=== PATIENT | male | born 1960 | race Caucasian/White ===

== ENCOUNTER 2019-10-22 11:42 | Inpatient (IN) | payer SELFPAY ==
[~2019-10-22] VITALS: Ht 177.8 cm; Wt 87.9 kg
[2019-10-22] MEDS ORDERED: IV NORMAL SALINE 1,000ML 1,000 ML IV ONE (12:00)
[2019-10-22] MEDS ORDERED: CONTRAST GIVEN MC PRN (12:15)
[2019-10-22] MEDS ORDERED: IOHEXOL 300 MG/ML 75 ML VIAL. IV ONE (12:15)
--- NOTE | 2019-10-22 12:15 | PHYS DOC ---
Past History Past Medical History: No Pertinent History Past Surgical History: No Surgical History Smoking: Cigarettes Alcohol Use: None Drug Use: None General Adult EDM: Chief Complaint: NAUSEA/VOMITING/DIARRHEA HPI: HPI: 59-year-old male presents via EMS with report of lower abdominal pain with associated nausea, vomiting, and diarrhea. Reports it started 2 days ago. Reports he has concerned it might have been associated with some sausage that he cooked for biscuits and gravy Wed night. Denies fever or chills. Denies trauma. Denies travel outside [place]. Denies contact with anyone diagnosed with COVID-19. Reports someone else that ate the biscuits and gravy also had some nausea/vomiting/diarrhea but has since resolved. Review of Systems: Review of Systems: Constitutional: Denies fever or chills Eyes: Denies redness or eye pain HENT: Denies nasal congestion or sore throat Respiratory: Denies cough or shortness of breath Cardiovascular: Denies chest pain or palpitations GI: Reports abdominal pain, nausea, vomiting, and diarrhea : Denies dysuria or hematuria Musculoskeletal: Denies back pain or joint pain Integument: Denies rash or skin lesions Neurologic: Denies headache, focal weakness or sensory changes Complete systems were reviewed and found to be within normal limits, except as documented in this note. Current Medications: Current Meds: Current Medications Medications (Trade) Dose Ordered Sig/Janet Start Time Stop Time Status Last Admin Dose Admin Famotidine (Pepcid Vial) 20 mg 1X ONCE 10/22/19 12:10/22/19 12:10/22/19 12:04 20 MG Info (Do NOT chart on this entry -- for MONITORING) 1 each PRN DAILY PRN 10/22/19 12:15 10/24/19 12:14 Iohexol (Omnipaque 300 Mg/ml) 75 ml 1X ONCE 10/22/19 12:15 10/22/19 12:16 Ketorolac Tromethamine (Toradol 15mg Vial) 10 mg 1X ONCE 10/22/19 12:30 10/22/19 12:31 10/22/19 12:04 10 MG Ondansetron HCl (Zofran) 4 mg 1X ONCE 10/22/19 12:30 10/22/19 12:31 10/22/19 12:04 4 MG Sodium Chloride 1,000 ml @ 1,000 mls/hr 1X ONCE 10/22/19 12:00 10/22/19 12:59 10/22/19 12:00 1,000 MLS/HR Allergies: Allergies: Allergies Coded Allergies Type Severity Reaction Last Updated Verified No Known Drug Allergies 10/22/19 No Physical Exam: PE: Constitutional: Well developed, well nourished, no acute distress, non-toxic appearance HENT: Normocephalic, atraumatic, oropharynx dry Eyes: Conjunctiva normal, no discharge Neck: Normal range of motion, no tenderness, supple Cardiovascular: Heart rate normal, regular rhythm Lungs & Thorax: Bilateral breath sounds clear to auscultation, no wheezing Abdomen: Soft, diffuse tenderness, no guarding/rebound tenderness, mild distention Skin: Warm, dry, no erythema, no rash Back: No tenderness, no CVA tenderness Extremities: No tenderness, ROM intact, no edema Neurologic: Alert and oriented X 3, no focal deficits noted Psychologic: Affect normal, judgment normal Current Patient Data: Vital Signs: Vital Signs Date Time Temp Pulse Resp B/P (MAP) Pulse Ox O2 Delivery O2 Flow Rate FiO2 10/22/19 11:52 97.6 80 148/99 (115) 98 10/22/19 11:51 18 Room Air EKG: EKG: @1357 NSR @73bpm, No ST elevation, QRS 382ms, QT/QTc 382/424ms Radiology/Procedures: Radiology/Procedures: PROCEDURE: CT ABD PELV W/ IV CONTRST ONLY CT SCAN OF THE ABDOMEN AND PELVIS WITH IV CONTRAST. History: Comparison:None. Procedure: Contiguous axial images of the abdomen and pelvis were performed after the administration of 75 cc of Isovue 370 IV contrast. Oral contrast: No. Findings: The urinary bladder is collapsed. There is apparent mild wall thickening. The appendix is normal. The colon has a normal caliber. The proximal small bowel is dilated. The mid and distal small bowel is collapsed. There is no exact transition zone seen. Liver: Unremarkable Spleen: Unremarkable Pancreas: Unremarkable Adrenal Glands: Unremarkable Kidneys: Bilateral simple cysts There is no mass or lymphadenopathy. There is no free air. There is no free fluid. There is a small hiatal hernia. Impression: 1. Partial mid small bowel obstruction. 2. Wall thickening of the urinary bladder likely secondary to hypertrophy. End impression PQRS Compliance Statement: One or more of the following individualized dose reduction techniques were utilized for this examination: 1. Automated exposure control 2. Adjustment of the mA and/or kV according to patient size 3. Use of iterative reconstruction technique Electronically signed by: Evelio Gonzalez III, MD (10/22/2019 1:37 PM) [id number] Course & Med Decision Making: Course & Med Decision Making Pertinent Labs and Imaging studies reviewed. (See chart for details) Patient presents with lower abdominal pain with associated nausea, vomiting, and diarrhea. Symptomatic treatment provided. IV fluid hydration given. Labs obtained and posted to chart. Hemoglobin elevated consistent for dehydration. WBC within normal limits however elevated bands noted. Patient does not meet SI RS criteria. Lactic acid within normal limits. UA with signs of microscopic hematuria. Patient reports history of chronic hematuria. CT abdomen/pelvis with finding of partial small bowel obstruction and bladder hypertrophy. Stool studies ordered. Patient currently has been unable to produce stool. Patient requiring admission for further evaluation and treatment. Discussed with Dr. Correa (hospitalist) who is in agreement with admission. Discussed findings and plan with patient, who acknowledges understanding and agreement. Anette Disclaimer: Anette Disclaimer: This electronic medical record was generated, in whole or in part, using a voice recognition dictation system. Departure Departure: Impression: Primary Impression: Partial small bowel obstruction Additional Impressions: Dehydration Bandemia Hematuria Qualified Codes: R31.9 - Hematuria, unspecified Disposition: ADMITTED INPATIENT Admitting Physician: Gay Correa Condition: STABLE Referrals: PCPREGINALD (PCP) MEY JOYNER DO Oct 22, 2019 12:15
[2019-10-22 12:25] LABS: BASO % 0 % (0-3); EOS % 0 % (0-3); HEMATOCRIT 51.6 % (39.0-53.0); HEMOGLOBIN 17.7 g/dL (13.0-17.5); LYMPH # 0.5 x10^3/uL (1.0-4.8); LYMPH % 6 % (24-48); MEAN CORPUSCULAR HEMOGLOBIN 30 pg (25-35); MEAN CORPUSCULAR HGB CONC 34 g/dL (31-37); MEAN CORPUSCULAR VOLUME 86 fL (79-100); MONO # 1.1 x10^3/uL (0.0-1.1); MONO % 14 % (0-9); NEUT # 6.3 x10^3uL (1.8-7.7); NEUT % 80 % (31-73); PLATELET COUNT 272 x10^3/uL (140-400); RED BLOOD COUNT 5.97 x10^6/uL (4.30-5.70); RED CELL DISTRIBUTION WIDTH 15.4 % (11.5-14.5); WHITE BLOOD COUNT 7.9 x10^3/uL (4.0-11.0)
[2019-10-22] MEDS ORDERED: FAMOTIDINE 20 MG/2 ML VIAL IVP ONE (12:30)
[2019-10-22] MEDS ORDERED: ONDANSETRON PF 4 MG/2 ML VIAL. IVP ONE (12:30)
[2019-10-22] MEDS ORDERED: KETOROLAC 15 MG/ML VIAL. IVP ONE (12:30)
[2019-10-22 12:41] LABS: CALCIUM 9.1 mg/dL (8.5-10.1); CREATININE 1.2 mg/dL (0.7-1.3); GFR 61.6; POTASSIUM 3.9 mmol/L (3.5-5.1)
[2019-10-22 12:43] LABS: BACTERIA,URINE 0 /HPF (0-FEW); BILIRUBIN,URINE NEG (NEG); CLARITY,URINE HAZY; COLOR,URINE YELLOW; GLUCOSE,URINE NEG (NEG); NITRITE,URINE NEG (NEG); RBC,URINE 20-40 /HPF (0-2); SQUAMOUS EPITHELIAL CELL,UR MOD /LPF; UROBILINOGEN,URINE 0.2 mg/dL (0.2 mg/dL)
[2019-10-22 12:57] LABS: ALBUMIN 3.8 g/dL (3.4-5.0); MAGNESIUM 2.5 mg/dL (1.8-2.4); TOTAL BILIRUBIN 0.5 mg/dL (0.2-1.0); TOTAL PROTEIN 7.7 g/dL (6.4-8.2)
[2019-10-22 13:14] LABS: % BANDS 16 % (0-9); % LYMPHS 10 % (24-48); % MONOS 7 % (0-10); % SEGS 67 % (35-66)
[2019-10-22 13:15] LABS: PLT ESTIMATE ADEQUATE (ADEQUATE)
--- NOTE | 2019-10-22 13:40 | RAD ---
CT SCAN OF THE ABDOMEN AND PELVIS WITH IV CONTRAST. History: Comparison:None. Procedure: Contiguous axial images of the abdomen and pelvis were performed after the administration of 75 cc of Isovue 370 IV contrast. Oral contrast: No. Findings: The urinary bladder is collapsed. There is apparent mild wall thickening. The appendix is normal. The colon has a normal caliber. The proximal small bowel is dilated. The mid and distal small bowel is collapsed. There is no exact transition zone seen. Liver: Unremarkable Spleen: Unremarkable Pancreas: Unremarkable Adrenal Glands: Unremarkable Kidneys: Bilateral simple cysts There is no mass or lymphadenopathy. There is no free air. There is no free fluid. There is a small hiatal hernia. Impression: 1. Partial mid small bowel obstruction. 2. Wall thickening of the urinary bladder likely secondary to hypertrophy. End impression PQRS Compliance Statement: One or more of the following individualized dose reduction techniques were utilized for this examination: 1. Automated exposure control 2. Adjustment of the mA and/or kV according to patient size 3. Use of iterative reconstruction technique Electronically signed by: Evelio Gonzalez III, MD (10/22/2019 1:37 PM) [id number]
[2019-10-22] MEDS: IV NORMAL SALINE 1,000ML 1,000 ML IV SCH ×2 (14:07→22:19)
[2019-10-22 16:11] VITALS: BP 145/87
[2019-10-22] MEDS: ONDANSETRON PF 4 MG/2 ML VIAL. IVP PRN (17:00)
[2019-10-22 17:13] LABS: FECAL OB PT POSITIVE (NEG)
--- NOTE | 2019-10-22 18:18 | HP ---
ADMIT DATE: 10/22/2019 HISTORY OF PRESENT ILLNESS: The patient is a 59-year-old male patient who came to the Emergency Room complaining of nausea, vomiting and diarrhea started last , 3 days ago. He also complained of abdominal pain. He said that is mostly dry heaving; however, has multiple episodes of loose bowel movement, associated abdominal pain after he took biscuits and gravy Thursday night. He does have some chills, but denied any fever. Denied any travel outside [place]. Denied any contact with anyone diagnosed with COVID-19. He stated that someone else ate the biscuits and gravy also had some nausea, vomiting and diarrhea that has since resolved. He was extensively investigated in the Emergency Room and his lab work showed that he clearly dehydrated. His BUN is 36, his creatinine 1.2. His H and H also was 17.7 and 51.6, likely due to dehydration, although he is a smoker, due to secondary erythrocytosis. His CT scan of the abdomen and pelvis showed that what looks like partial mid small-bowel obstruction, wall thickening there in the bladder, likely secondary to hypertrophy. The patient was admitted and was kept n.p.o., was given a liter of fluid in the Emergency Room and was also continued on IV fluid and IV pain medication. PAST MEDICAL HISTORY: Significant for gastroesophageal reflux disease as well as dysphagia to solids. PAST SURGICAL HISTORY: Unremarkable. ALLERGIES: He has no known drug allergies. MEDICATIONS: He is currently on Prilosec 20 mg once a day. FAMILY HISTORY: He has 3 brothers, 1 older and 2 youngers. He does not keep in touch with them. His father at the age of 65. Mother is still alive at the age of 80. SOCIAL HISTORY: twice, has no children. He smokes a pack a day, does not drink alcohol or use recreational drugs. 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 REVIEW OF SYSTEMS: The patient denies any blurring of vision, cataract, glaucoma or macular degeneration. Denied any earache, tinnitus or sensorineural deafness. Denied any nosebleeds, stuffy nose or postnasal drip. Denied any sore throat, sore tongue, toothache, hoarseness of voice. He did complain of difficulty swallowing to solids. He did complain also of nausea with vomiting, but mostly dry heaves. He has diarrhea, it has been consistent since last , but denied any hematemesis, melena or hematochezia. Denied any dysuria, frequency or hematuria. Denied any chest pain, shortness of breath, orthopnea, paroxysmal nocturnal dyspnea. Denied any cough, phlegm or hemoptysis. Did complain of dizziness and lightheadedness. PHYSICAL EXAMINATION: GENERAL: On arrival to the Emergency Room, he looked well and was clearly in no apparent respiratory distress. No pallor, jaundice, cyanosis or thyromegaly. No jugular venous distention. No limb edema. VITAL SIGNS: His heart rate was 80, blood pressure was 148/99, temperature was 97.6, respiratory rate was 18 and oxygen saturation was 98%. HEAD, EYES, EARS, NOSE AND THROAT: Showed normocephalic, atraumatic. NECK: Supple. HEART: Showed normal first and second heart sounds. No gallop or murmur. CHEST: Clear to auscultation. No crepitation or rhonchi. ABDOMEN: Distended, soft, nontender. No guarding or rigidity. No organomegaly. All hernial orifices intact. Bowel sounds normal. NEUROLOGIC: He was awake, alert, responding appropriately. All cranial nerves intact. EXTREMITIES: He moves extremities without difficulty. LABORATORY DATA: Showed a white cell count 7900, hemoglobin 17.7, hematocrit 51.6, MCV 86 and platelet count of 272,000. Serum sodium was 135, potassium 3.9, chloride 99, bicarbonate 24, anion gap of 13, BUN 36, creatinine 1.2, estimated GFR was 61 mL per minute. His glucose 131, lactic acid was 1.3, calcium was 9.1, magnesium 2.5. Total bilirubin, AST, ALT, alkaline phosphatase were normal. Total protein 7.7, albumin 3.8. Lipase was 38. His prothrombin time, INR and aPTT are normal. Urinalysis essentially unremarkable. He has large amount of protein, large amount of blood. The urine was negative for nitrite, bilirubin and leukocyte esterase, 20-40 rbc's, 1-4 wbc's, and no bacteria. Had a CT scan of the abdomen and pelvis with IV contrast, which basically showed that the urinary bladder is collapsed. There is apparent mild wall thickening. The appendix is normal. The colon has a normal caliber. The proximal small bowel is dilated. The mid and distal small bowel is collapsed. There is no exact transition zone seen. The liver, spleen, pancreas, adrenal glands and kidneys are unremarkable. There is no mass or lymphadenopathy. There is no free air. No free fluid. He has a small hiatal hernia. The patient was admitted with acute gastroenteritis versus partial small obstruction. IMPRESSION: The patient will be kept n.p.o. except for ice chips. We will continue with IV fluid. He was also started on fentanyl 50 mcg IV every 4 hours. I will repeat his labs this afternoon, this evening and again tomorrow morning. MIKI OSHEA MD DR: MARCELO/alex JOB#: [id number] / [id number]
[2019-10-22 19:14] LABS: CALCIUM 8.5 mg/dL (8.5-10.1); CREATININE 1.3 mg/dL (0.7-1.3); GFR 56.1; POTASSIUM 3.5 mmol/L (3.5-5.1)
[2019-10-22 20:00] VITALS: BP 124/77
[2019-10-22] MEDS: MORPHINE SULFATE 4 MG/ML DISP.SYRIN. IV PRN (21:00)
[2019-10-22 23:47] VITALS: BP 114/68
[2019-10-23 05:24] VITALS: BP 107/62
[2019-10-23 06:08] LABS: BASO % 1 % (0-3); EOS % 1 % (0-3); HEMATOCRIT 45.2 % (39.0-53.0); HEMOGLOBIN 15.2 g/dL (13.0-17.5); LYMPH # 0.5 x10^3/uL (1.0-4.8); LYMPH % 10 % (24-48); MEAN CORPUSCULAR HEMOGLOBIN 29 pg (25-35); MEAN CORPUSCULAR HGB CONC 34 g/dL (31-37); MEAN CORPUSCULAR VOLUME 86 fL (79-100); MONO # 1.3 x10^3/uL (0.0-1.1); MONO % 24 % (0-9); NEUT # 3.4 x10^3uL (1.8-7.7); NEUT % 65 % (31-73); PLATELET COUNT 224 x10^3/uL (140-400); RED BLOOD COUNT 5.23 x10^6/uL (4.30-5.70); RED CELL DISTRIBUTION WIDTH 15.5 % (11.5-14.5); WHITE BLOOD COUNT 5.2 x10^3/uL (4.0-11.0)
[2019-10-23 06:16] LABS: ALBUMIN/GLOBULIN RATIO 0.8 (1.0-1.7); CALCIUM 8.2 mg/dL (8.5-10.1); MAGNESIUM 2.3 mg/dL (1.8-2.4); POTASSIUM 3.5 mmol/L (3.5-5.1); TOTAL BILIRUBIN 0.4 mg/dL (0.2-1.0); TOTAL PROTEIN 6.7 g/dL (6.4-8.2)
[2019-10-23] MEDS: IV NORMAL SALINE 1,000ML 1,000 ML IV SCH (08:30)
[2019-10-23] MEDS: MORPHINE SULFATE 4 MG/ML DISP.SYRIN. IV PRN (08:35)
[2019-10-23 10:34] VITALS: BP 124/85
[2019-10-23] MEDS ORDERED: ACETAMINOPHEN 325 MG TABLET PO PRN (11:45)
[2019-10-23] MEDS ORDERED: PANTOPRAZOLE 40 MG TABLET. PO ONE (12:30)
--- NOTE | 2019-10-23 12:44 | PN ---
DATE: 10/23/2019 SUBJECTIVE: The patient is resting flat comfortably, in no apparent distress, had one loose bowel movement this morning. Denied any nausea or vomiting. Denied any chills, rigors or fever. Continued to have abdominal distention, abdominal pain. PHYSICAL EXAMINATION: GENERAL: When I examined him this morning, there was no pallor, jaundice, cyanosis or thyromegaly. No jugular venous distension. No lower limb edema. VITAL SIGNS: His heart rate was 66, blood pressure was 124/85, temperature 98, respiratory rate was 20, and oxygen saturation was 96% on room air. HEAD, EYES, EARS, NOSE AND THROAT: Showed normocephalic, atraumatic. NECK: Supple. HEART: Showed normal first and second heart sounds. No gallop or murmur. CHEST: Clear to auscultation. No crepitation or rhonchi. ABDOMEN: Distended, soft. There is no tenderness. No guarding or rigidity. No organomegaly. All hernial orifice intact. Bowel sounds normal. NEUROLOGIC: He is awake, alert, responding appropriately. All cranial nerves are intact. He moves extremities without difficulty. His intake and output are incompletely recorded. LABORATORY DATA: His lab work this morning showed his white cell count is 5200, hemoglobin is down to 15, hematocrit 45, MCV 86 and platelet count 224,000. Serum sodium was 140, potassium 3.5, chloride 106, bicarbonate 23, anion gap of 11, BUN 29, creatinine 1, estimated GFR was 76 mL per minute. His glucose 107, calcium was 8.2, magnesium was 2.3. Total bilirubin, AST, ALT, alkaline phosphatase were normal. Total protein was 6.7, albumin 3. ASSESSMENT: Acute gastroenteritis versus partial small-bowel obstruction. The patient seemed somewhat better. I will advance his diet to full liquid diet. Continue with IV fluid, continue with pain management and I did start him on Protonix 40 mg once a day as well as Tylenol 650 every 4 hours. I will repeat all his lab work tomorrow and probably repeat his abdominal ultrasound tomorrow and if there is no evidence of any bowel obstruction, we will advance his diet and hopefully discharge him home. MIKI OSHEA MD DR: MARCELO/alex JOB#: [id number] / [id number]
[2019-10-23] MEDS: ONDANSETRON PF 4 MG/2 ML VIAL. IVP PRN (13:41)
[2019-10-23 15:48] VITALS: BP 129/83
[2019-10-23 21:09] VITALS: BP 110/65
[2019-10-23 23:56] VITALS: BP 121/76
[2019-10-24 05:18] VITALS: BP 114/68
[2019-10-24 06:27] LABS: HEMATOCRIT 44.4 % (39.0-53.0); RED BLOOD COUNT 5.16 x10^6/uL (4.30-5.70); RED CELL DISTRIBUTION WIDTH 15.1 % (11.5-14.5); WHITE BLOOD COUNT 7.1 x10^3/uL (4.0-11.0)
[2019-10-24 06:41] LABS: ALBUMIN 2.9 g/dL (3.4-5.0); ALBUMIN/GLOBULIN RATIO 0.8 (1.0-1.7); CALCIUM 8.3 mg/dL (8.5-10.1); POTASSIUM 3.5 mmol/L (3.5-5.1); TOTAL BILIRUBIN 0.4 mg/dL (0.2-1.0); TOTAL PROTEIN 6.5 g/dL (6.4-8.2)
[2019-10-24] MEDS ORDERED: IOHEXOL 300 MG/ML 75 ML VIAL. IV ONE (07:30)
[2019-10-24] MEDS ORDERED: CONTRAST GIVEN MC PRN (07:30)
[2019-10-24] MEDS: PANTOPRAZOLE 40 MG TABLET. PO SCH (08:05)
--- NOTE | 2019-10-24 08:55 | RAD ---
EXAM: CT Abdomen and Pelvis with IV contrast CLINICAL HISTORY: Nausea, vomiting, abdominal pain. COMPARISON: CT 10/22/2019 TECHNIQUE: Helical CT of the abdomen and pelvis was performed following the administration of IV contrast. Axial, coronal and sagittal reformatted images were generated. ---PQRS compliance statement - One or more of the following individualized dose reduction techniques were utilized for this study: 1. Automated exposure control 2. Adjustment of the mA and/or kV according to patient size 3. Use of iterative reconstruction technique--- FINDINGS: Lower chest: Subtle linear opacities lower lobes likely scarring/atelectasis. 5 mm left lower lobe lung nodule. Abdomen and pelvis: Liver and biliary system: Hepatic hypoattenuation likely fatty liver. High density material within the gallbladder likely sludge. No biliary ductal dilatation. Spleen: Unremarkable Pancreas: Unremarkable Adrenal glands: Unremarkable Kidneys: Symmetric nephrograms. Bilateral renal cystic lesions are seen. No hydronephrosis or hydroureter. Lymph nodes/retroperitoneum: No abdominal or pelvic lymphadenopathy by size criteria. A few mildly prominent mesenteric lymph nodes are seen along the right mesentery Vessels: Aortic calcifications are seen. Infrarenal aortic ectasia is seen. Bowel/Peritoneal cavity: There is focal thickening of the ascending colon with associated pericolonic infiltration. Associated 6 mm mesenteric lymph node is seen (series 2 image 70). Appendix is normal. The degree of small bowel dilatation has decreased compared to 10/22/2019 No abdominal or pelvic ascites. Abdominal wall: Small fat-containing periumbilical hernia. Bladder: Mild bladder wall thickening Bones: Symphysis pubis degenerative changes are seen. IMPRESSION: 1. There is no infiltration and thickening of the ascending colon consistent with colitis. Although this may be related to infectious or inflammatory colitis, underlying mass cannot be excluded and following resolution of the underlying acute process, recommend direct visualization with colonoscopy. Small associated mesenteric lymph nodes are seen. 2. Mild bladder wall thickening, nonspecific, possibly cystitis or related to hypertrophy. 3. Interval decrease in small bowel dilatation. Electronically signed by: Josué Cheng MD (10/24/2019 8:51 AM) [id number]
[2019-10-24 11:16] VITALS: BP 99/70
--- NOTE | 2019-10-24 14:36 | PN ---
DATE: 10/24/2019 SUBJECTIVE: The patient is resting, slightly propped up in bed, in no apparent distress. He apparently is tolerating his diet without any problems in particular, he has no nausea, no vomiting. However, he continued to have diarrhea and a CT scan today showed that the patient has actually infiltration and thickening of the ascending colon consistent with colitis, although this may be related to infectious or inflammatory colitis, underlying mass cannot be excluded and following resolution of the underlying acute process. Recommend direct visualization with colonoscopy, small associated mesenteric lymph nodes are seen, mild bladder wall thickening nonspecific with cystitis related to hypertrophy, interval decrease in small bowel dilatation. PHYSICAL EXAMINATION: GENERAL: When I examined him, he looked well and was clearly in no apparent respiratory distress. There was no pallor, jaundice, cyanosis or thyromegaly. No jugular venous distention. No limb edema. VITAL SIGNS: His heart rate was 69, blood pressure was 99/70, temperature was 98.7, respiratory rate was 20, and oxygen saturation was 97%. HEAD, EYES, EARS, NOSE AND THROAT: Normocephalic and atraumatic. NECK: Supple. HEART: Showed normal first and second heart sounds. No gallop, rub or murmur. CHEST: Clear to auscultation. No crepitation or rhonchi. ABDOMEN: Distended, soft, nontender. No guarding or rigidity. No organomegaly. All hernial orifice intact. Bowel sounds normal. NEUROLOGIC: He was grossly intact. His intake over the last 24 hours was 1000. No output was recorded. LABORATORY DATA: His lab work this morning showed a white cell count 7000, hemoglobin 15, hematocrit 44, MCV 86, and platelet count 245,000. His chemistry showed a serum sodium 140, potassium 3.5, chloride 104, bicarbonate 24, anion gap of 12, BUN 21, creatinine 1, estimated GFR was 76 mL per minute, his glucose was 97, calcium was 8.3, magnesium was 2.3. Total bilirubin, AST, ALT, alkaline phosphatase were normal. Total protein 6.5, albumin was 2.9. His stool for C. diff toxins were negative; however, the result of the stool for culture and sensitivity are still pending at the time of this dictation. His stool for occult blood was positive. PLAN: My plan is to start him on ciprofloxacin 400 mg IV twice a day and Flagyl 500 mg IV 3 times a day and if his symptoms are improved tomorrow, we can finish treatment as an outpatient. MIKI OSHEA MD DR: MARCELO/alex JOB#: [id number] / [id number]
[2019-10-24 15:24] VITALS: BP 133/85
[2019-10-24] MEDS ORDERED: ONDANSETRON PF 4 MG/2 ML VIAL. IVP PRN (17:15)
[2019-10-24 19:40] VITALS: BP 126/81
[2019-10-24] MEDS: CIPROFLOXACIN 400MG PREMIX 200 ML IV SCH (20:50)
[2019-10-24 23:00] VITALS: BP 108/68
[2019-10-25 05:00] VITALS: BP 131/84
[2019-10-25 06:24] LABS: HEMATOCRIT 44.7 % (39.0-53.0); RED BLOOD COUNT 5.22 x10^6/uL (4.30-5.70); WHITE BLOOD COUNT 8.4 x10^3/uL (4.0-11.0)
[2019-10-25 06:39] LABS: CALCIUM 8.1 mg/dL (8.5-10.1); POTASSIUM 3.4 mmol/L (3.5-5.1)
[2019-10-25] MEDS: CIPROFLOXACIN 400MG PREMIX 200 ML IV SCH (07:48)
[2019-10-25] MEDS: PANTOPRAZOLE 40 MG TABLET. PO SCH (07:48)
[2019-10-25 11:03] VITALS: BP 137/83
[2019-10-25] MEDS ORDERED: METR-34 PO (12:53)
[2019-10-25] MEDS ORDERED: CIPR500T94 PO (12:53)
[2019-10-25] MEDS ORDERED: LACTOBACILLUS RHAMNOSUS GG 1 CAPSULE. PO SCH (21:00)
== END 2019-10-25 13:36 | disposition home or self-care (01) | DRG 389 ==
LOC: ER 11:42 → 1 SOUTH 14:00
PROVIDERS: ADMIT Internal Medicine; ATTEND Internal Medicine
DX: K56.600 Partial intestinal obstruction, unspecified as to cause (principal); A09 Infectious gastroenteritis and colitis, unspecified; K21.9 Gastro-esophageal reflux disease without esophagitis; D72.825 Bandemia; D75.1 Secondary polycythemia; E86.0 Dehydration; F17.210 Nicotine dependence, cigarettes, uncomplicated; R31.9 Hematuria, unspecified
CPT/HCPCS: 36415; 74177; 80048; 80053; 81001; 82274; 82553; 83605; 83615; 83690; 83735; 84484; 85007; 85025; 85027; 85610; 85730; 87045; 87177; 87209; 87493; 93005; 96361; 96374; 96375; J0744; J1885; J2270; J2405; J3010; J3490; Q9967; 99285-25; J7030

== ENCOUNTER → 2021-02-06 | Emergency (ER) | payer BC ==
[~2021-02-06] VITALS: Ht 177.8 cm; Wt 94.7 kg
[~2021-02-06] MED LIST: CIPR500T94 PO; METR-34 PO
[2021-02-06 10:24] VITALS: BP 142/86
--- NOTE | 2021-02-06 11:06 | PHYS DOC ---
Past History Past Medical History: No Pertinent History Past Surgical History: No Surgical History Smoking: Cigarettes Alcohol Use: None Drug Use: None Adult General Chief Complaint Chief Complaint: SKIN PROBLEM HPI HPI Patient is a 60-year-old male who comes to emergency room for removal of a mole on his right chest. Patient states he has had this mole for quite some time, however states over the last couple days the discomfort has gotten worse, states that he just wants it removed now. Denies any other pain denies any shortness of breath. States he does not have a primary care provider, and he does not plan to ever get one. Review of Systems Review of Systems Constitutional: Denies fever or chills [] Eyes: Denies change in visual acuity, redness, or eye pain [] HENT: Denies nasal congestion or sore throat [] Respiratory: Denies cough or shortness of breath [] Cardiovascular: No additional information not addressed in HPI [] GI: Denies abdominal pain, nausea, vomiting, bloody stools or diarrhea [] : Denies dysuria or hematuria [] Musculoskeletal: Denies back pain or joint pain [] Integument: Denies rash [] reports lesion to his right chest wall for several years Neurologic: Denies headache, focal weakness or sensory changes [] Endocrine: Denies polyuria or polydipsia [] All other systems were reviewed and found to be within normal limits, except as documented in this note. Allergies Allergies Allergies Coded Allergies Type Severity Reaction Last Updated Verified No Known Drug Allergies 10/22/19 No Physical Exam Physical Exam Constitutional: Well developed, well nourished, no acute distress, non-toxic appearance. [] HENT: Normocephalic, atraumatic, bilateral external ears normal, oropharynx moist, no oral exudates, nose normal. [] Eyes: PERRLA, EOMI, conjunctiva normal, no discharge. [] Neck: Normal range of motion, no tenderness, supple, no stridor. [] Cardiovascular:Heart rate regular rhythm, no murmur [] Lungs & Thorax: Bilateral breath sounds clear to auscultation [] Abdomen: Bowel sounds normal, soft, no tenderness, no masses, no pulsatile masses. [] Skin: Warm, dry, no erythema, no rash. [] 3 mm in diameter raised, round, clear lesion to right chest wall with erythema surrounding base. No tenderness surrounding. Back: No tenderness, no CVA tenderness. [] Extremities: No tenderness, no cyanosis, no clubbing, ROM intact, no edema. [] Neurologic: Alert and oriented X 3, normal motor function, normal sensory function, no focal deficits noted. [] Psychologic: Affect normal, judgement normal, mood normal. [] Current Patient Data Vital Signs Vital Signs Date Time Temp Pulse Resp B/P (MAP) Pulse Ox O2 Delivery O2 Flow Rate FiO2 02/06/21 10:24 97.9 79 20 142/86 96 Room Air EKG EKG [] Radiology/Procedures Radiology/Procedures [] Heart Score C/O Chest Pain: No Risk Factors: Risk Factors: DM, Current or recent (<one month) smoker, HTN, HLP, family history of CAD, obesity. Risk Scores: Risk Factors: DM, Current or recent (<one month) smoker, HTN, HLP, family history of CAD, obesity. Course & Med Decision Making Course & Med Decision Making Pertinent Labs and Imaging studies reviewed. (See chart for details) Lesion appears chronic on chest wall, with no acute changes reported. 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 Erythema likely due to irritation of mole from work, without infectious process. [] Discussed with patient that the mole removal is not a procedure in the emergency room, and after removal it would need to be biopsied, with inability to have follow-up in the emergency room. recommend patient follow-up with primary care to have this done, patient reports he does not have a primary care he does not ever plan to see a primary care provider. Patient states "If I have cancer, then I have cancer, I don't care". Patient again informs the emergency room is advised to have a long-term more mobile, his primary currently better suited for this. Patient states "so you are not going to do anything for me", advised patient again this would need a primary care with a follow-up for the results. At this time, patient tears off his wristband and walks out of the emergency room Dragon Disclaimer Dragon Disclaimer This electronic medical record was generated, in whole or in part, using a voice recognition dictation system. Departure Departure: Impression: Primary Impression: Skin lesion of chest wall Disposition: HOME / SELF CARE / HOMELESS Condition: GOOD Referrals: PCP,REGINALD (PCP) ASIYA DESIR APRN Feb 06, 2021 11:05
== END | disposition home or self-care (01) ==
LOC: ER 09:43
DX: L98.8 Other specified disorders of the skin and subcutaneous tissue (principal); F17.210 Nicotine dependence, cigarettes, uncomplicated
CPT/HCPCS: 99281

== ENCOUNTER 2021-05-23 10:01 | Emergency (ER) | payer BC ==
[~2021-05-23] VITALS: Ht 177.8 cm; Wt 95.5 kg
[2021-05-23 10:30] VITALS: BP 177/81
[2021-05-23] MEDS ORDERED: SULF1TAB24 PO (10:35)
--- NOTE | 2021-05-23 10:36 | PHYS DOC ---
Past History Past Medical History: No Pertinent History Past Surgical History: No Surgical History Smoking: Cigarettes Alcohol Use: None Drug Use: None General Adult EDM: Chief Complaint: HAND PROBLEM HPI: HPI: 60-year-old male presents with right hand swelling and a draining lesion. The patient has had this pain for several days. It was swelling more more in one area so he poked a hole in it. He got thick white discharge out of it. He has gotten drainage a couple more times but the hand continues to be swollen around the thumb and index finger. He denies fever or chills. He does not recall a specific injury that started this process. Review of Systems: Review of Systems: Constitutional: Denies fever or chills Eyes: Denies change in visual acuity HENT: Denies nasal congestion or sore throat Respiratory: Denies cough or shortness of breath Cardiovascular: Denies chest pain or edema GI: Denies abdominal pain, nausea, vomiting, bloody stools or diarrhea : Denies dysuria Musculoskeletal: Denies back pain or joint pain Integument: Right hand abscess Neurologic: Denies headache, focal weakness or sensory changes Endocrine: Denies polyuria or polydipsia Lymphatic: Denies swollen glands Psychiatric: Denies depression or anxiety Allergies: Allergies: Allergies Coded Allergies Type Severity Reaction Last Updated Verified No Known Drug Allergies 10/22/19 No Physical Exam: PE: Constitutional: Well developed, well nourished, no acute distress, non-toxic appearance. [] HENT: Normocephalic, atraumatic, bilateral external ears normal, oropharynx moist, no oral exudates, nose normal. [] Eyes: PERRLA, EOMI, conjunctiva normal, no discharge. [] Neck: Normal range of motion, no tenderness, supple, no stridor. [] Cardiovascular:Heart rate regular rhythm, no murmur [] Lungs & Thorax: Bilateral breath sounds clear to auscultation [] Abdomen: Bowel sounds normal, soft, no tenderness, no masses, no pulsatile masses. [] Skin: Erythematous right hand around the base of the left thumb and extending up the index finger. No palpable fluctuant area for drainage. There is an area of previous drainage with scab coverage. [] Back: No tenderness, no CVA tenderness. [] Extremities: No tenderness, no cyanosis, no clubbing, ROM intact, no edema. [] Neurologic: Alert and oriented X 3, normal motor function, normal sensory function, no focal deficits noted. [] Psychologic: Affect normal, judgement normal, mood normal. [] EKG: EKG: [] Radiology/Procedures: Radiology/Procedures: [] Heart Score: C/O Chest Pain: N/A Risk Factors: Risk Factors: DM, Current or recent (<one month) smoker, HTN, HLP, family history of CAD, obesity. Risk Scores: Score 0 - 3: 2.5% MACE over next 6 weeks - Discharge Home Score 4 - 6: 20.3% MACE over next 6 weeks - Admit for Clinical Observation Score 7 - 10: 72.7% MACE over next 6 weeks - Early Invasive Strategies Course & Med Decision Making: Course & Med Decision Making Pertinent Labs and Imaging studies reviewed. (See chart for details) The patient appears to have already caused the wound to drain. An I&D is not indicated at this time. I will treat him with Bactrim for 7 days. We will give the first dose in the emergency room. [] Dragon Disclaimer: Dragon Disclaimer: This electronic medical record was generated, in whole or in part, using a voice recognition dictation system. Departure Departure: Impression: Primary Impression: Cellulitis of right hand Disposition: HOME / SELF CARE / HOMELESS Condition: STABLE Referrals: PCP,REGINALD (PCP) Patient Instructions: Cellulitis, Hvqz-[id number] Scripts Sulfamethoxazole/Trimethoprim (BACTRIM DS TABLET) 1 Each Tablet 1 TAB PO BID for cellulitis for 7 Days, #14 TAB 0 Refills Prov: CHARLIE RESENDIZ DO 05/23/21 CHARLIE RESENDIZ DO May 23, 2021 10:36
[2021-05-23] MEDS ORDERED: SMX/TMP 800/160MG 2TABLET STARTPACK. PO ONE (10:45)
== END 2021-05-23 10:52 | disposition home or self-care (01) ==
LOC: ER 10:01
DX: L03.113 Cellulitis of right upper limb (principal); F17.210 Nicotine dependence, cigarettes, uncomplicated
CPT/HCPCS: 99283-25

== ENCOUNTER 2021-08-02 16:17 | Emergency (ER) | payer BC ==
[~2021-08-02] VITALS: Ht 177.8 cm; Wt 95.5 kg
[~2021-08-02 16:17] MED LIST changes: +SULF1TAB24 PO
[2021-08-02 16:25] VITALS: BP 162/94
[2021-08-02] MEDS ORDERED: KETOROLAC 60 MG/2 ML VIAL. IM ONE (16:45)
--- NOTE | 2021-08-02 16:46 | PHYS DOC ---
Past History Past Medical History: No Pertinent History (SHIRIN ANN) Past Surgical History: No Surgical History (SHIRIN ANN) Smoking: Cigarettes Alcohol Use: None Drug Use: None (SHIRIN ANN) General Adult EDM: Chief Complaint: SHORTNESS OF BREATH HPI: HPI: Patient is a 60 year old male who presents with chest wall tenderness after a large sneeze yesterday. Patient states he was having no symptoms, but a sneeze "snuck up on him," and he had pain immediately after. Since that sneeze, patient reports that body movements as well as deep inspiration exacerbates his pain. He states that he took over 1000 mg of Tylenol today without significant symptom relief. He denies substernal chest pressure, palpitations, cough and shortness of breath. (SHIRIN ANN) Review of Systems: Review of Systems: ROS negative or noncontributory except as mentioned in HPI. (SHIRIN ANN) Allergies: Allergies: Allergies Coded Allergies Type Severity Reaction Last Updated Verified No Known Drug Allergies 10/22/19 No (SHIRIN ANN) Physical Exam: PE: Constitutional: Well developed, well nourished, no acute distress, non-toxic appearance, patient is disheveled. HENT: Normocephalic, atraumatic, bilateral external ears normal, nose normal. Eyes: EOMI, conjunctiva normal, no discharge. Neck: Normal range of motion, trachea midline, no stridor. Cardiovascular: Heart rate regular rhythm, no obvious murmur. Lungs & Thorax: Bilateral breath sounds clear to auscultation, reproducible chest wall tenderness on palpation. Abdomen: Bowel sounds normal, soft, no tenderness, no masses, no pulsatile masses. Skin: Warm, dry, no erythema, no rash. Neurologic: Alert and oriented x4, no focal deficits noted. (SHIRIN ANN) Current Patient Data: Vital Signs: Vital Signs Date Time Temp Pulse Resp B/P (MAP) Pulse Ox O2 Delivery O2 Flow Rate FiO2 08/02/21 16:25 97.9 79 18 162/94 (116) 99 (SHIRIN ANN) Heart Score: C/O Chest Pain: N/A (SHIRIN ANN) Course & Med Decision Making: Course & Med Decision Making Pertinent Labs and Imaging studies reviewed. (See chart for details) Patient presents to emergency department with chest pain that appears to be m usculoskeletal in nature status post very large sneeze. Patient was advised to alternate between [id number] NSAID and acetaminophen. He was provided with incentive spirometer to prevent development of pneumonia. All of this was discussed with the patient. He understands and is agreeable to discharge plan. (SHIRIN ANN) Dragon Disclaimer: Dragon Disclaimer: This electronic medical record was generated, in whole or in part, using a voice recognition dictation system. (SHIRIN ANN) Attending Co-Sign The patient was seen and interviewed as well as examined at the bedside. The chart was reviewed. The case was discussed. Agree with the plan of care. (CHARLIE RESENDIZ DO) Departure Departure: Impression: Primary Impression: Muscle strain of anterior chest wall Disposition: 01 HOME / SELF CARE / HOMELESS Condition: IMPROVED Referrals: PCP,NO (PCP) Patient Instructions: Chest Wall Pain, [id number], Incentive Spirometer, Muscle Strain, [id number]-[id number] Additional Instructions: EMERGENCY DEPARTMENT GENERAL DISCHARGE INSTRUCTIONS Thank you for coming to [facility] (ED) today and trusting us with you care. We trust that you had a positive experience in our Emergency Department. If you wish to speak to the department management, you may call the director at [phone]. YOUR FOLLOW UP INSTRUCTIONS ARE FOLLOWS: 1. Follow up with your primary care doctor. If you do not have a primary doctor, please ask for a resource list of physicians or clinics that may be able to assist you with follow up care. 2. The emergency provider has interpreted your imaging studies, if any were ordered. The radiology it technical support specialist also reviewed them. If there is a change in the findings, you will be notified in 48 hours when at all possible. 3. If a lab test or culture has been done, your results will be reviewed and you will be notified if you need a change in treatment. 4. Follow instructions verbalized to you and refer to the printouts if needed. - Take 500mg tylenol (acetaminophen) around 21:00 (9:00pm). After that, alternate every four hours between 800mg advil (ibuprofen) and 500mg tylenol. ADDITIONAL INSTRUCTIONS AND INFORMATION: 1. Your care today has been supervised by a physician who is specially trained in emergency care. Many problems require more than one evaluation for a complete diagnosis and treatment. We recommend that you schedule your follow up appointment as recommended to ensure complete treatment of you illness or injury. If you are unable to obtain follow up care and continue to have a problem, or if your condition worsens, we recommend that you return to the ED. 2. We are not able to safely determine your condition over the phone nor are we able to give sound medical advice over the phone. For these safety reasons, if you call for medical advice we will ask you to come to the ED for further evaluation. 3. If you have any questions regarding these discharge instructions please call the ED at [phone]. SAFETY INFORMATION: In the interest of safety, wellness, and injury prevention; we encourage you to wear your seat belt, if you smoke; quite smoking, and we encourage family to use a protective helmet for bicycling and other sporting events that present an increased risk for head injury. IF YOUR SYMPTOMS WORSEN OR NEW SYMPTOMS DEVELOP, OR YOU HAVE CONCERNS ABOUT YOUR CONDITION; OR IF YOUR CONDITION WORSENS WHILE YOU ARE WAITING FOR YOUR FOLLOW UP APPOINTMENT; EITHER CONTACT YOUR PRIMARY CARE DOCTOR, THE PHYSICIAN WHOSE NAME AND NUMBER YOU WERE GIVEN, OR RETURN TO THE ED IMMEDIATELY. SHIRIN ANN Aug 02, 2021 16:46 CHARLIE RESENDIZ DO Aug 03, 2021 06:09
== END 2021-08-02 16:57 | disposition home or self-care (01) ==
LOC: ER 16:24
DX: S29.011A Strain of muscle and tendon of front wall of thorax, initial encounter (principal); F17.210 Nicotine dependence, cigarettes, uncomplicated; X50.9XXA Other and unspecified overexertion or strenuous movements or postures, initial encounter; Y93.89 Activity, other specified; Y92.89 Other specified places as the place of occurrence of the external cause; Y99.8 Other external cause status
CPT/HCPCS: 96372; 99283; J1885